=== PATIENT | male | born 1935 | race American Indian/Alaskan Native ===

== ENCOUNTER 2021-09-22 09:50 | Observation (INO) ==
--- NOTE | 2021-08-29 10:52 | PAT Medication Instructions ---
Medication Instructions Date of Service August 29, 2021 Home Medications Medication Instructions Recorded oxybutynin chloride 5 mg tablet 5 mg PO BID 30 Days #60 tab 08/30/20 atenolol 50 mg tablet 50 mg PO QAM glucosamine-chondroitin 250 mg-200 mg tablet (Osteo Bi-Flex) 2 tab PO DAILY multivitamin 1 tab PO DAILY spironolactone 25 mg tablet 25 mg PO QAM vit C-vit [id number] ox-lutein 226 mg-200 unit-5 mg-0.8 mg capsule 2 cap PO DAILY oxybutynin chloride 5 mg tablet 5 mg PO BID aflibercept 2 mg/0.05 mL intravitreal syringe (Eylea) 2 mg INTRAVITREAL UD PRN alfuzosin 10 mg tablet,extended release 24 hr 10 mg PO QDD pravastatin 40 mg tablet 40 mg PO QPM ASK your prescriber and surgeon aflibercept 2 mg/0.05 mL intravitreal syringe (Eylea) 2 mg INTRAVITREAL UD PRN STOP taking 2 weeks before surgery (or as soon as possible if surgery is within 2 weeks) glucosamine-chondroitin 250 mg-200 mg tablet (Osteo Bi-Flex) 2 tab PO DAILY vit C-vit [id number] ox-lutein 226 mg-200 unit-5 mg-0.8 mg capsule 2 cap PO DAILY DO NOT take the morning of surgery multivitamin 1 tab PO DAILY spironolactone 25 mg tablet 25 mg PO QAM oxybutynin chloride 5 mg tablet 5 mg PO BID Take morning of surgery With a small sip of water, OTHERWISE NOTHING TO EAT OR DRINK AFTER MIDNIGHT: atenolol 50 mg tablet 50 mg PO QAM Take evening before surgery oxybutynin chloride 5 mg tablet 5 mg PO BID alfuzosin 10 mg tablet,extended release 24 hr 10 mg PO QDD pravastatin 40 mg tablet 40 mg PO QPM Other Notes If you have any questions please call us at [phone] or [phone] or [phone] or [phone]
--- NOTE | 2021-09-03 13:45 | Anesthesiology Consultation ---
Date of Service September 03, 2021 Assessment & Plan (1) Encounter for pre-operative examination: - PCP office visit 08/05/21 [facility]: "...previously referred to Hematology for thrombocytopenia. Reviewed recent notes from Dr Madden. His last few platelet levels including [facility] were normal...Stable from Hematology point for future joint replacement surgery...Explained to patient I would consider him medically optimized for planned right total hip arthroplasty at this time. Any chronic conditions are stable. No acute cardiac findings on exam. Acceptable surgical candidate per age. Would be low overall risk for perioperative complications..." - hematology/oncology office visit 06/24/21 [facility]: "...stable without any new symptoms...doing well...increasing pain specially in the left knee and right hip and may need knee replacement surgery...waiting to schedule the right hip replacement surgery as this is causing more problems than the knee. There is no history of bleeding or change in any of the medication. Overall clinically he is stable. Platelet counts were normal. Discussed with the patient and detail about the diagnosis and reviewed all the available blood test result with them. For now will continue to monitor the patient clinically. Based on the recent blood test there is no contraindication to proceed with surgical procedure..." - COVID screening: Per assessment on 09/03/2021: Travel screen negative, no known COVID-19 positive contacts or current COVID-19 related symptoms in past 2 weeks. Patient vaccinated. Surgeon arranging preop COVID testing, scheduled 09/18/2021. Awaiting results. Chart Review Chart Review: Acceptable Risk for Surgery and Patient seen in Pre Admission Testing Teaching & Discussion Pre-Anesthesia Teaching/Discussion Notes: Instructed NPO after midnight before surgery, except medications with 15 cc of water. Medication instructions provided according to the PAT guidelines. History Surgery Operation Date: 09/22/21 12:30 Proposed Procedures p Right Anterior Total Hip Arthroplasty - Stanley Bright DO Height/Weight Height: 5 ft 10 in Weight: 84.7 kg Allergies Allergy/AdvReac Type Severity Reaction Status Date / Time No Known Allergies Allergy Verified 08/18/21 10:12 Medications Home Medications Medication Instructions Recorded Confirmed Last Taken atenolol 50 mg tablet 50 mg PO QAM 07/04/19 08/18/21 Unknown glucosamine-chondroitin 250 mg-200 2 tab PO DAILY 07/04/19 08/18/21 Unknown mg tablet (Osteo Bi-Flex) multivitamin 1 tab PO DAILY 07/04/19 08/18/21 Unknown spironolactone 25 mg tablet 25 mg PO QAM 07/04/19 08/18/21 Unknown vit C-vit F-[id number]-[id number] ox-lutein 2 cap PO DAILY 07/04/19 08/18/21 Unknown 226 mg-200 unit-5 mg-0.8 mg capsule oxybutynin chloride 5 mg tablet 5 mg PO BID 30 Days #60 tab 08/30/20 08/18/21 Unknown aflibercept 2 mg/0.05 mL 2 mg INTRAVITREAL UD PRN 08/18/21 08/18/21 Unknown intravitreal syringe (Eylea) alfuzosin 10 mg tablet,extended 10 mg PO QDD 08/18/21 08/18/21 Unknown release 24 hr pravastatin 40 mg tablet 40 mg PO QPM 08/18/21 08/18/21 Unknown Past Medical History Medical History (Updated 09/03/21 @ 15:34 by Nguyen Blair PA-C) Benign prostatic hyperplasia with urinary obstruction History of DVT (deep vein thrombosis) 10 years ago (post-op knee surgery)- previous on blood thinner (since discontinued) 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 Follows with [facility] heme/onc: per recent note 06/24/21 "platelet counts are normal" Patient denies h/o stroke, seizures, heart attack, heart failure or blood transfusions. Exercise / Class Metabolic Activity III < 4 Walking/Shop/Light housework (ambulates with rolling walker, denies CP or SOB) Past Family History Family History Mother Family history of diabetes mellitus Past Surgical History Surgical History History of colonoscopy History of left cataract surgery History of right cataract surgery History of right knee surgery 10 years ago (Dr. Temple) History of tonsillectomy Past Anesthesia History No Hx of Anesthesia Complications and No Family Hx of Anesthesia Complications History of PONV No Hx of PONV and No Hx of Motion Sickness Social History Smoking Status: Never smoker Do You Dip or Chew Tobacco: No Hx Alcohol Use: Yes Alcohol type: beer alcohol intake frequency: other Alcohol Intake Frequency Comment: IN THE SUMMER AFTER CUT GRASS WILL HAVE A BEER substance use type: does not use Review of Systems Occasional snoring supine per , denies witnessed apneas or sleep studies. Patient denies chest pain, shortness of breath, dyspnea on exertion, reflux, fever, chills, cough, wheezing, or palpitations. Physical Exam Vital Signs Vitals BP 130/65 P 60 TEMP 98.5 SP02 97% on RA RESP 17 Physical Full cervical extension range of motion without pain TMD 3.5 finger breaths Mallampati Score 3 Dentition: intact, several missing teeth, denies chipped or loose teeth, caps/crowns, implants or bridges Lungs: normal respiratory effort. Clear throughout to auscultation, no adventitious breath sounds Cardiac: regular rate and rhythm, no murmurs noted Carotid arteries: negative bruit bilat Lab Results Anesthesia Preop Results Results Anesthesia Widget: WBC 4.91 K/uL (4.8-10.8) 09/03/21 Hgb 14.0 g/dL (14.0-18.0) 09/03/21 Hct 42.2 % (42-52) 09/03/21 Plt 133 K/uL (130-400) 09/03/21 Na 140 mmol/L (136-145) 09/03/21 K 4.7 mmol/L (3.5-5.1) 09/03/21 Cl 103 mmol/L (98-107) 09/03/21 CO2 32 mmol/L (21-32) 09/03/21 BUN 22 mg/dl (6-23) 09/03/21 Creat 1.03 mg/dl (0.6-1.4) 09/03/21 Glucose Level 140 mg/dl (70-99(Fasting)) H 09/03/21 PT 10.8 Seconds (9.0-12.0) 09/03/21 PTT 26.9 Seconds (21.0-31.0) 09/03/21 INR 1.0 (0.9-1.1) 09/03/21 Blood Type O Positive 09/03/21 Antibody Screen NEGATIVE 09/03/21 Testing Electrocardiogram Date: 09/03/21 Sinus rhythm with marked sinus arrhythmia, rate [address] abnormality Chest X-Ray Date: 09/03/21 The heart is mildly enlarged noting atherosclerotic calcification of the thoracic aorta. The pulmonary vasculature is noncongested. The lungs and pleural spaces are clear. There is no pneumothorax. The skeletal structures are osteopenic. The bony thorax appears intact. Degenerative change is noted throughout the thoracic spine.
[~2021-09-22 09:50] MED LIST: ACETAMINOPHEN 500 MG TAB PO SCH; BUPIVACAINE 0.5 % 5 MG/1 ML PF 10ML VIAL ONE; FAMOTIDINE 20 MG TAB PO SCH; GABAPENTIN 300 MG CAP PO SCH; Ketorolac (*for OR use only*) 30 MG, dexAMETHasone 4 MG, KETAMINE HCL (**OR use only) 1... INFIL SCH; LR 15ML/HR IV SCH; LR 60ML/HR IV SCH; TRANEXAMIC ACID 1,000 MG **IV Intra-op IV SCH; TRANEXAMIC ACID 1,000 MG **IV Pre-op IV SCH; ceFAZolin 2000MG 2,000 MG/15 ML SYR IV SCH; dexAMETHasone 4 MG TAB PO SCH
--- NOTE | 2021-09-22 10:16 | History & Physical Bridge Note ---
Date of Service September 22, 2021 History & Physical Bridge Note I have examined the patient, reviewed the History & Physical and in the interval since the performance of the History & Physical I have noted the following changes of clinical significance: no changes noted
[2021-09-22] MEDS: LR 500ML BOLUS IV SCH ×2 (10:44→13:30)
[2021-09-22] MEDS ORDERED: ONDANSETRON INJ 2 MG/ML 2 ML VIAL IV PRN ×2 (11:06→16:35)
[2021-09-22] MEDS ORDERED: ePHEDrine sulfate 50 MG/ML AMP IV PRN (11:06)
[2021-09-22] MEDS ORDERED: ATROPINE SULFATE 0.1 MG/ML 10ML SYR IV PRN (11:06)
[2021-09-22] MEDS ORDERED: fentaNYL citrate 100 MCG/2 ML VIAL IV PRN (11:06)
[2021-09-22] MEDS ORDERED: MIDAZOLAM HCL 1 MG/ML 2ML VIAL ONE (11:27)
[2021-09-22] MEDS ORDERED: PROPOFOL IV EMULSION 10 MG/ML 20 ML VIAL IV ONE (11:27)
[2021-09-22] MEDS ORDERED: LIDOCAINE 2% 2 ML VIAL/AMP(20MG/ML) INFIL ONE (11:27)
[2021-09-22] MEDS ORDERED: fentaNYL citrate 100 MCG/2 ML VIAL ONE ×3 (11:27→14:35)
[2021-09-22] MEDS ORDERED: ORTHO JOINT ANESTHETIC ONE (12:53)
[2021-09-22] MEDS ORDERED: ONDANSETRON INJ 2 MG/ML 2 ML VIAL ONE (13:35)
[2021-09-22] MEDS ORDERED: ePHEDrine sulfate 50 MG/ML AMP ONE (13:53)
--- NOTE | 2021-09-22 14:35 | Operative Report ---
PG Post Operative Report Pre & Post Diagnosis Operation Date: 09/22/21 12:40 Pre-Op Diagnosis: Degenerative Joint Disease of Right Hip Post-Op Diagnosis: Degenerative Joint Disease of Right Hip I identified the patient and participated in the time-out.: Yes Procedure Operation Date: 09/22/21 12:40 Actual Procedures p Right Anterior Total Hip Arthroplasty(Right) - Stanley Bright DO Surgeon Stanley Bright DO Can Feeder Stanley Addison PAC Estimated Blood Loss 250 Findings Consistent with Post-Op Diagnosis Specimens Right femoral head Complications none Disposition Disposition: Recovery Room Indications Jaylon is a pleasant 85-year-old male who is been dealing with chronic increasing right hip and groin pain. X-rays and clinical examination were diagnostic for advanced osteoarthritis of the right hip. After failing conservative treatment, he elected proceed with a right anterior total hip arthroplasty. Description of Procedure Implants used I used a ZimmerBiomet total hip arthroplasty system with a size 4 standard offset Avenir Complete stem, a 56mm G7 cup with a 25mm screw, an E1 polyethylene liner, a 40mm ceramic head with a 0 neck. Jaylon arrived at the hospital for the above procedure. He was seen in the preoperative holding area and the operative extremity was identified and signed. He was given a preoperative antibiotic, and TXA. He was then taken back to the operating room and laid on the table in the supine position. He was given general anesthesia. The operative leg was secured to a Puristst leg positioner. The hip was then prepped and draped in sterile fashion. A timeout was done and the patient and the operative extremity was properly identified. An anterior approach was used. Dissection was taken down through the fascia and the tensor muscle belly was retracted laterally and the rectus was retracted medially. The circumflex vessels were identified and ligated. The capsule was then incised and tagged for later repair. The femoral neck was then cut and the femoral head was removed. The acetabulum was exposed. Time was spent doing a complete circumferential labral release. Sequential reaming of the acetabulum up to a size 55 reamer was done. Final reamings were done under fluoroscopy to ensure appropriate version. A Biomet 56mm G7 cup was then impacted into place. A single 25 mm screw was placed. The E1 polyethylene liner was then snapped into place. Surrounding soft tissues were then injected with 100 cc of an orthopedic pain control cocktail. The proximal femur was then exposed. Sequential broaching up to a size 4 broach was done. Off that broach a size 40 head with a 0 neck was trialed. The hip was reduced and fluoroscopic images showed anatomic alignment of the implants in acceptable length. The broach was removed. The final size 4 standard offset Avenir Complete stem was then impacted into place. A ceramic 40mm head with a 0 neck was then impacted onto the stem and the hip was reduced. Final fluoroscopic images showed anatomic alignment of the hip. The capsule was then closed with #1 Vicryl suture. A dilute betadyne lavage was then done for 3 minutes. The joint was then irrigated with normal saline solution. The fascia was closed with #1 PDS suture. Skin was closed with 2-0 Vicryl, mele, and a Silverlon dressing. He was then transferred to a hospital bed and taken to the post anesthesia care unit in stable condition. He tolerated the procedure well. Stanley Addison PA-C, was present for the entire procedure. He was critical for patient positioning, prepping, draping, retraction exposure, wound closure and application of sterile dressing. I attest to the content of the Intraoperative Record and any orders documented therein. Any exceptions are noted below.
--- NOTE | 2021-09-22 14:45 | Fluoroscopy Report ---
INTRAOPERATIVE RADIOGRAPHS CLINICAL HISTORY: Right hip arthroplasty. Fluoroscopy time: 21 seconds. FINDINGS: 2 spot fluoroscopic views of the right hip are presented. The initial image shows surgical absence of the right femoral head with an acetabular cup in place. The second image shows a bipolar r ight hip arthroplasty in near anatomic alignment. No evidence of acute fracture is identified on thes e fluoroscopic views. IMPRESSION: Intraoperative images from a right hip arthroplasty procedure as above. Electronically signed by: Richie Callejas M.D. 09/22/2021 2:44 PM
--- NOTE | 2021-09-22 15:27 | XRay Report ---
XR hip 1V RT w pelvis HISTORY: 85 years-old Male IN PACU - A/P PELVIS and LATERAL HIP right hip total joint arthroplasty COMPARISON: Fluoroscopic images of the right hip 09/22/2021 TECHNIQUE: 2 views of the right hip FINDINGS: There is at least moderate left hip osteoarthritis. Right hip total joint arthroplasty demonstrates s atisfactory alignment. There is no acute fracture or unexpected opaque foreign body. Lateral skin sta ples are noted along with expected postoperative soft tissue swelling with deep tissue air. IMPRESSION: Right hip total joint arthroplasty with expected postoperative changes. ACT 112: Negative or not required by law. The above report was generated using voice recognition software. It may contain grammatical, syntax o r spelling errors. Electronically signed by: Nikolai Barrientos M.D. 09/22/2021 3:24 PM
--- NOTE | 2021-09-22 15:46 | Anesthesiology Progress Note ---
Date of Service September 22, 2021 Anesthesia Post Procedure Vital Signs Vital Signs: Temp Pulse Pulse Resp BP BP Pulse Ox 09/22/21 15:35 66 15 142/59 H 98 09/22/21 15:25 65 19 155/87 H 97 09/22/21 15:15 77 12 139/90 99 09/22/21 15:05 67 20 158/74 H 99 09/22/21 14:59 37.0 C 75 14 160/77 H 94 09/22/21 10:21 37.3 C 54 L 20 157/69 H 97 Transfer of Care Handoff Completed per policy Notes Mental Status: alert / awake / arousable Patient Amnestic to Procedure: Yes Nausea / Vomiting: adequately controlled Pain: adequately controlled Airway Patency, RR, SpO2: stable & adequate BP & HR: stable & adequate Hydration State: stable & adequate Anesthetic Complications: no major complications apparent and Pt Satisfied with anesthetic care
[2021-09-22] MEDS ORDERED: METOCLOPRAMIDE HCL INJ 5 MG/ML 2 ML VIAL IV PRN (16:35)
[2021-09-22] MEDS ORDERED: HYDROmorphone INJ 0.5 MG/0.5 ML SYR IV PRN (16:35)
[2021-09-22] MEDS ORDERED: bisacodyL 10 MG SUPP PR PRN (16:35)
[2021-09-22] MEDS ORDERED: ALFUZOSIN HCL 10 MG TAB PO SCH (16:35)
[2021-09-22] MEDS ORDERED: oxyCODONE HCL IR 5 MG TAB (IMMEDIATE RELEASE) PO PRN (16:35)
[2021-09-22] MEDS ORDERED: MAGNESIUM HYDROXIDE SUSP 30 ML UDC PO PRN (16:35)
[2021-09-22] MEDS ORDERED: NALOXONE HCL 0.4 MG/1 ML VIAL/CARP IV PRN (16:35)
[2021-09-22] MEDS: SODIUM CHLORIDE 0.9% 1000ML 1,000 ML IV SCH (18:05)
[2021-09-22] MEDS: KETOROLAC TROMETHAMINE 15 MG/ML VIAL IV SCH ×2 (18:11→21:00)
[2021-09-22] MEDS ORDERED: ASPIRIN 81 MG ECTAB PO SCH (21:00)
[2021-09-22] MEDS ORDERED: SENNA 8.6 MG TAB PO SCH (21:00)
[2021-09-22] MEDS ORDERED: PRAVASTATIN SOD 40 MG TAB PO SCH (21:00)
[2021-09-22] MEDS: ceFAZolin 2000MG 2,000 MG/15 ML SYR IV SCH (21:00)
[2021-09-22] MEDS: OXYBUTYNIN CHLORIDE 5 MG TAB PO SCH (21:01)
[2021-09-22] MEDS: DOCUSATE SODIUM 100 MG CAP PO SCH (21:01)
[2021-09-22] MEDS: ACETAMINOPHEN 500 MG TAB PO SCH (21:02)
[2021-09-23] MEDS: SODIUM CHLORIDE 0.9% 1000ML 1,000 ML IV SCH (04:35)
[2021-09-23] MEDS: ceFAZolin 2000MG 2,000 MG/15 ML SYR IV SCH (05:40)
[2021-09-23] MEDS: KETOROLAC TROMETHAMINE 15 MG/ML VIAL IV SCH ×2 (05:40→08:32)
[2021-09-23] MEDS: ACETAMINOPHEN 500 MG TAB PO SCH (05:40)
--- NOTE | 2021-09-23 07:03 | Orthopedic Progress Note ---
Date of Service September 23, 2021 Assessment & Plan (1) Status post right hip replacement: Overall is doing very well. He is not having much pain in the right hip. He is on Xarelto for DVT prophylaxis. He will be seen by physical therapy today for ambulation and range of motion exercises. He can be discharged home later today. He will follow-up with orthopedics in 2 weeks. Oliver Torres was seen and examined at bedside this morning. Overall is doing very well. He is not having much pain in the right hip. He was able to get some sleep last night. Has been walking around his room. He has no complaints. Review of Systems All systems reviewed & are unremarkable except as noted in HPI & below. Physical Exam On physical examination of the right hip, the dressing is clean and dry. His leg is out in full extension. He has active dorsiflexion and plantarflexion of his right ankle.. Results & Data Results & Data Laboratory Results . Diagnostic Findings Postoperative x-rays of the right hip show the prosthesis to be in anatomic alignment without any evidence of fracture, desiccation, or loosening. PG Care Time/CCT Total # of Minutes Spent Total Time Spent with Patient: Total time spent is greater than 50% in coordination of care (as documented) at patient's floor/unit and/or counseling patient: Coding Level of Care Code 82396 Post Operative Follow-Up Diagnoses Status post right hip replacement Z96.641
--- NOTE | 2021-09-23 07:04 | Discharge Summary ---
Date of Service September 23, 2021 Principal Diagnosis Same as "Discharge Diagnosis" noted below under Discharge Instructions. Discharge Exam On physical examination of the right hip, the dressing is clean and dry. His leg is out in full extension. He has active dorsiflexion and plantarflexion of his right ankle.. Discharge Data Procedures Performed Operation Date: 09/22/21 12:40 Actual Procedures p Right Anterior Total Hip Arthroplasty(Right) - Stanley Bright DO Ordered Studies 09/22/21 12:40 FL hip RT 1V Routine Hospital Course (1) Status post right hip replacement: On September 22, [address] [facility] and underwent a right hip replacement without complication. He had a general anesthetic. Postoperatively he was started on Xarelto for DVT prophylaxis and transferred to the general orthopedic floors. His hospital course was uneventful. On postop day #1, his vital signs were stable and his pain was well controlled. He was able to participate well with physical therapy doing ambulation and range of motion exercises. He was then discharged home. He will follow-up with orthopedics in 2 weeks. PG Care Time/CCT Total # of Minutes Spent Total Time Spent with Patient: Total time spent is greater than 50% in coordination of care (as documented) at patient's floor/unit and/or counseling patient: Discharge Plan Discharge Items Patient Disposition: Home - Home Health Services Reason For Visit: DJD Right Hip Discharge Diagnosis: Right hip replacement Activity: Per Instructions section Non-emergency contact: Surgeon Call non-emergency contact if: your wound has increased redness and your wound has increased drainage Follow-up/Referrals: Karlo Dimas MD [Primary Care Provider] - Diet: Regular Addtl Attending Provider Instructions: Activity and Therapy Recommendations: * If you are using [facility] then therapy will be provided at your home until they feel you have accomplished all of your goals. * If you are using [facility] then Physical Therapy will be provided until they feel you are ready to start Outpatient Physical Therapy. * If you are not using home therapy then Outpatient Physical Therapy should start about 3-5 days from your day of surgery. Therapy will last about 6-10 weeks * You were shown a series of exercises in the hospital. Do these exercises three times each day including the exercises you were shown in physical therapy. * Get up and walk several times each day.~ For the first four weeks, try not to stand or walk for more than one hour at a time. If you do stand or walk for more than one hour, you will not hurt anything, but your leg will likely swell.~~ * As you feel comfortable, you may change from the walker or crutches to a cane and~then to independent walking. Medications: * Narcotic You will likely be sent home from the hospital with a prescription for the narcotic pain medication that worked best throughout your stay. * Aspirin Most patients will be required to take Aspirin 81mg twice a day for 6 weeks after surgery. This is obtained [id number] and a prescription is not necessary. * Other medications may be prescribed for specific circumstances. If you have any questions, please call the office at . * Resume previous home medications unless otherwise instructed TEDs/Elastic Stockings: The white elastic stockings help limit swelling and prevent blood clots from forming in your legs. The more you wear them, the more they work. Wear them for six weeks. Dressing Care: Leave the Silverlon dressing in place for 7 days. After 7 days you may remove the dressing. If the incision is not draining then you may leave the mele open to air. If there is a little bit of drainage or if the mele are getting stuck on your clothing then cover the incision with a dry dressing. The mele will be removed at your 2 week follow-up appointment. Showering: You may shower with the Silverlon dressing in place. Do not let the shower spray hit the dressing directly. Pat the Silverlon dressing dry. If the dressing becomes wet underneath, then simply remove the dressing. Keep the incision dry until you are 7 days out from the day of surgery. After 7 days you may remove the Silverlon dressing and shower with the mele exposed. Let soapy water run over the mele and pat them dry. Do not scrub or soak the incision. Things To Watch For: * Drainage from the incision site that occurs more than one week after your surgery. * Increased redness at the incision site. * Fever above 102 degrees Fahrenheit. * Unusual chest pain or shortness of breath. * Call [facility] at with any of the above problems Follow-Up Visit: Follow-up with Dr. Bright's PA (Stanley Addison) 2-3 weeks after your day of surgery. He will remove your mele and answer any questions. If you have any additional questions or concerns, Dr Bright is usually in the office at the same time and will be available An appointment was probably scheduled when you signed-up for surgery in the office. If you have any questions call Office Instructions: More detailed instructions as well as Frequently Asked Questions were provided in a folder by our office when you signed-up for surgery. Please review these instructions when you get home. If you have any further questions or concerns, please feel free to call the office at [phone] Pending Studies at Discharge: No Stand-Alone Forms: [facility] Medications and DC Order Prescriptions: New oxycodone-acetaminophen 5-325 mg tablet 1 tab PO Q6H PRN (Reason: pain) Qty: 30 RF: 0 Xarelto 10 mg tablet 10 mg PO DAILY 30 Days Qty: 30 RF: 0 Continued oxybutynin chloride 5 mg tablet 5 mg PO BID 30 Days Qty: 60 RF: 2 PreserVision Lutein 226 mg-200 unit -5 mg-0.8 mg capsule 2 cap PO DAILY RF: 0 atenolol 50 mg tablet 50 mg PO QAM RF: 0 spironolactone 25 mg tablet 25 mg PO QAM RF: 0 glucosamine-chondroitin [Osteo Bi-Flex] 250-200 mg tablet 2 tab PO DAILY RF: 0 multivitamin Tablet 1 tab PO DAILY RF: 0 pravastatin 40 mg Tablet 40 mg PO QPM RF: 0 alfuzosin 10 mg tablet extended release 24 hr 10 mg PO QDD RF: 0 Eylea 2 mg/0.05 mL Syringe 2 mg INTRAVITREAL UD PRN (Reason: MACULAR DEGENERATION) RF: 0 Discharge Orders: Discharge Order (Routine); Ordered 09/23/21 Ordered By: Stanley Bright Admission Data Admit Date/Time: 09/22/21 14:57 Attending Provider: Stanley Bright Admit Provider: Stanley Bright Primary Care Provider: Karlo Dimas
[2021-09-23] MEDS: DOCUSATE SODIUM 100 MG CAP PO SCH (07:32)
[2021-09-23] MEDS: OXYBUTYNIN CHLORIDE 5 MG TAB PO SCH (07:33)
[2021-09-23] MEDS ORDERED: dexAMETHasone 4 MG TAB PO SCH (08:00)
[2021-09-23] MEDS ORDERED: SPIRONOLACTONE 25 MG TAB PO SCH (09:00)
[2021-09-23] MEDS ORDERED: RIVAROXABAN 10 MG TABLET PO SCH (09:00)
[2021-09-23] MEDS ORDERED: ATENOLOL 50 MG TABLET PO SCH (09:00)
[2021-09-23] MEDS ORDERED: MULTIVITAMIN TAB PO SCH (09:00)
== END 2021-09-23 11:59 | disposition home health service (06) ==
LOC: ASU 09:50 → 3E 09:50

== ENCOUNTER 2022-05-08 07:48 | Observation (INO) ==
--- NOTE | 2022-03-31 15:59 | PAT Medication Instructions ---
Medication Instructions Date of Service March 31, 2022 Home Medications Medication Instructions Recorded amoxicillin 500 mg tablet 2,000 mg PO ONCE PRN prophylaxis 03/02/22 #4 tabs atenolol 50 mg tablet 50 mg PO QAM glucosamine-chondroitin 250 mg-200 mg tablet (Osteo Bi-Flex) 2 tab PO QPM multivitamin 1 tab PO QAM spironolactone 25 mg tablet 25 mg PO QAM vit C 226 mg-vit E 90 mg-copper 0.8 mg-zinc oxide-lutein 5 mg capsule 1 cap PO BID aflibercept 2 mg/0.05 mL intravitreal syringe (Eylea) 2 mg intravitreal UD PRN MACULAR DEGENERATION pravastatin 40 mg tablet 40 mg PO QPM amoxicillin 500 mg tablet 2,000 mg PO ONCE PRN alfuzosin 10 mg tablet,extended release 24 hr 10 mg PO QPM dutasteride 0.5 mg capsule (Avodart) 0.5 mg PO QPM Continue as directed amoxicillin 500 mg tablet 2,000 mg PO ONCE PRN(if needed) ASK your prescriber and surgeon aflibercept 2 mg/0.05 mL intravitreal syringe (Eylea) 2 mg intravitreal UD PRN MACULAR DEGENERATION STOP taking 2 weeks before surgery glucosamine-chondroitin 250 mg-200 mg tablet (Osteo Bi-Flex) 2 tab PO QPM vit C 226 mg-vit E 90 mg-copper 0.8 mg-zinc oxide-lutein 5 mg capsule 1 cap PO BID DO NOT take the morning of surgery multivitamin 1 tab PO QAM spironolactone 25 mg tablet 25 mg PO QAM Take morning of surgery With a small sip of water, OTHERWISE NOTHING TO EAT OR DRINK AFTER MIDNIGHT: atenolol 50 mg tablet 50 mg PO QAM Take evening before surgery pravastatin 40 mg tablet 40 mg PO QPM alfuzosin 10 mg tablet,extended release 24 hr 10 mg PO QPM dutasteride 0.5 mg capsule (Avodart) 0.5 mg PO QPM Other Notes If you have any questions please call us at [phone] or [phone] or [phone] or [phone]
--- NOTE | 2022-04-08 13:02 | Anesthesiology Consultation ---
Date of Service April 08, 2022 Assessment & Plan (1) Encounter for pre-operative examination: Plan - SAB attempted for R KASEY 09/22/21 LMA#5. "Failed spinal-general with LMA done." Outpatient joint assessment: Patient is currently scheduled for inpatient pathway. If re-evaluated pending system levels during current pandemic/surgeon requests outpatient pathway, patient is not acceptable candidate for outpatient joint program from anesthesia standpoint. Chart Review Chart Review: Acceptable Risk for Surgery and Patient seen in Pre Admission Testing Teaching & Discussion Pre-Anesthesia Teaching/Discussion Notes: Instructed NPO after midnight before surgery, except medications with 15 cc of water. Medication instructions provided according to the PAT guidelines. History Surgery Operation Date: 05/08/22 10:30 Proposed Procedures p Left Total Knee Arthroplasty - Stanley Bright DO Height/Weight Height: 5 ft 11 in Weight: 83.915 kg Allergies Allergy/AdvReac Type Severity Reaction Status Date / Time No Known Allergies Allergy Verified 03/31/22 15:02 Medications Home Medications Medication Instructions Recorded Confirmed Last Taken atenolol 50 mg tablet 50 mg PO QAM 07/04/19 03/31/22 09/22/21 08:00 glucosamine-chondroitin 250 mg-200 2 tab PO QPM 07/04/19 03/31/22 09/08/21 mg tablet (Osteo Bi-Flex) multivitamin 1 tab PO QAM 07/04/19 03/31/22 09/08/21 spironolactone 25 mg tablet 25 mg PO QAM 07/04/19 03/31/22 09/21/21 07:00 vit C 226 mg-vit E 90 mg-copper 1 cap PO BID 07/04/19 03/31/22 09/08/21 0.8 mg-zinc oxide-lutein 5 mg capsule aflibercept 2 mg/0.05 mL 2 mg intravitreal UD PRN MACULAR 08/18/21 03/31/22 07/15/21 intravitreal syringe (Eylea) DEGENERATION pravastatin 40 mg tablet 40 mg PO QPM 08/18/21 03/31/22 09/21/21 22:00 amoxicillin 500 mg tablet 2,000 mg PO ONCE PRN prophylaxis 03/02/22 03/31/22 U nknown #4 tabs alfuzosin 10 mg tablet,extended 10 mg PO QPM 03/31/22 03/31/22 Unknown release 24 hr dutasteride 0.5 mg capsule 0.5 mg PO QPM 03/31/22 03/31/22 Unknown (Avodart) Past Medical History Medical History (Updated 04/08/22 @ 13:05 by Nguyen Blair PA-C) Benign prostatic hyperplasia with urinary obstruction History of DVT (deep vein thrombosis) 10 years ago (post-op knee surgery)- previous on blood thinner (since discontinued) HTN (hypertension) controlled, stable per pt Hypercholesteremia Macular degeneration WET Overactive bladder Prediabetes A1c 6.0% 02/05/22 Thrombocytopenia 02/2021. Follows with [facility] heme/onc, stable per 12/2021 note Urinary retention Patient denies h/o stroke, seizures, heart attack, heart failure, or blood transfusions. 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 Temple) History of tonsillectomy Status post right hip replacement (~09/2021) 09/22/21 LMA#5. "Failed spinal-general with LMA done." Past Anesthesia History No Family Hx of Anesthesia Complications and Other (R KASEY 09/22/21 LMA#5. "Failed spinal-general with LMA done.") History of PONV No Hx of PONV and No Hx of Motion Sickness Social History Smoking Status: Never smoker Do You Dip or Chew Tobacco: No Hx Alcohol Use: Yes ("in the summer after cutting grass will have a beer") Alcohol type: beer alcohol intake frequency: holidays/special occasions only Hx Substance Use: No substance use type: does not use Review of Systems Patient denies chest pain, shortness of breath, dyspnea on exertion, snoring, witnessed apneas, reflux, fever, chills, cough, wheezing, or palpitations. Physical Exam Vital Signs Vitals BP 146/70 P 63 TEMP 98.4 SP02 98% on RA RESP 18 Physical Full cervical extension range of motion without pain TMD 3.5 finger breadths Mallampati Score 3 Dentition: several missing teeth; denies chipped or loose teeth, caps/crowns, implants or bridges Lungs: normal respiratory effort. Clear throughout to auscultation, no adventitious breath sounds Cardiac: regular rate and rhythm, no murmurs noted Carotid arteries: negative bruit bilat Lab Results Anesthesia Preop Results Results Anesthesia Widget: WBC 4.03 K/ul (4.8-10.8) L 04/08/22 Hgb 13.8 g/dl (14.0-18.0) L 04/08/22 Hct 41.8 % (40.1-51.0) 04/08/22 Plt 113 K/uL (130-400) L 04/08/22 Na 143 mmol/L (136-145) 04/08/22 K 4.6 mmol/L (3.5-5.1) 04/08/22 Cl 106 mmol/L (98-107) 04/08/22 CO2 33 mmol/L (21-32) H 04/08/22 BUN 22 mg/dl (6-23) 04/08/22 Creat 1.07 mg/dl (0.6-1.4) 04/08/22 Glucose Level 127 mg/dl (70-99(Fasting)) H 04/08/22 PT 10.8 Seconds (9.0-12.0) 04/08/22 PTT 26.7 Seconds (21.0-31.0) 04/08/22 INR 1.0 (0.9-1.1) 04/08/22 Blood Type O Positive 04/08/22 Antibody Screen NEGATIVE 04/08/22 Testing Electrocardiogram Date: 09/03/21 Sinus rhythm with marked sinus arrhythmia, rate [address] abnormality Chest X-Ray Date: 09/03/21 The heart is mildly enlarged noting atherosclerotic calcification of the thoracic aorta. The pulmonary vasculature is noncongested. The lungs and pleural spaces are clear. There is no pneumothorax. The skeletal structures are osteopenic. The bony thorax appears intact. Degenerative change is noted throughout the thoracic spine. COVID-19 Risk Screen Screening Information COVID-19 Screen Date: 04/08/22 Exposure 21 Days Family/Household +COVID Last 21 Days: No Exposure 10 Days Any COVID Exposure Last 10 Days: No Symptoms Last 10 Days Experienced COVID Sx Last 10 Days: No + COVID 0-90 Days COVID + in Last 0-90 Days: No
--- NOTE | 2022-05-07 06:57 | History & Physical Report ---
Date of Service May 07, 2022 Assessment & Plan (1) Primary osteoarthritis of left knee: We will proceed with a left total knee arthroplasty. Postoperatively he will be started on Eliquis for DVT prophylaxis and kept overnight in the hospital for postoperative medical management. He plans to have the hospital set up home health before discharge. History of Present Illness Chief Complaint: Osteoarthritis of the left knee. Primary Care Provider: Karlo Dimas MD Jaylon is a pleasant 86-year-old male who I recently did a right hip replacement on. He has done very well with that. Unfortunately, he is dealing with debilitating left knee pain. It hurts him all the time. Hehas already tried years of injections in his knee. It is affecting his daily activities. 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 He does have a history of a patella tendon repair by Dr. Temple in 2010. He did have a DVT after that repair. After failing conservative treatment of his left knee, he has elected proceed with a left total knee arthroplasty. Allergies Allergy/AdvReac Type Severity Reaction Status Date / Time No Known Allergies Allergy Verified 03/31/22 15:02 Home Medications Medication Instructions Recorded Confirmed Type atenolol 50 mg tablet 50 mg PO QAM 07/04/19 03/31/22 History glucosamine-chondroitin 250 mg-200 2 tab PO QPM 07/04/19 03/31/22 History mg tablet (Osteo Bi-Flex) multivitamin 1 tab PO QAM 07/04/19 03/31/22 History spironolactone 25 mg tablet 25 mg PO QAM 07/04/19 03/31/22 History vit C 226 mg-vit E 90 mg-copper 1 cap PO BID 07/04/19 03/31/22 History 0.8 mg-zinc oxide-lutein 5 mg capsule aflibercept 2 mg/0.05 mL 2 mg intravitreal UD PRN MACULAR 08/18/21 03/31/22 History intravitreal syringe (Eylea) DEGENERATION pravastatin 40 mg tablet 40 mg PO QPM 08/18/21 03/31/22 History amoxicillin 500 mg tablet 2,000 mg PO ONCE PRN prophylaxis 03/02/22 03/31/22 Rx #4 tabs alfuzosin 10 mg tablet,extended 10 mg PO QPM 03/31/22 03/31/22 History release 24 hr dutasteride 0.5 mg capsule 0.5 mg PO QPM 03/31/22 03/31/22 History (Avodart) Past Med/Surg History Medical History Benign prostatic hyperplasia with urinary obstruction History of DVT (deep vein thrombosis) 10 years ago (post-op knee surgery)- previous on blood thinner (since discontinued) HTN (hypertension) controlled, stable per pt Hypercholesteremia Macular degeneration WET Overactive bladder Prediabetes A1c 6.0% 02/05/22 Thrombocytopenia 02/2021. 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 Temple) History of tonsillectomy Status post right hip replacement (~09/2021) 09/22/21 LMA#5. "Failed spinal-general with LMA done." Family History Mother Family history of diabetes mellitus Other No family history of adverse response to anesthesia Social History Smoking Status: Never smoker Second Hand Exposure: No; Hx Alcohol Use: Yes ("in the summer after cutting grass will have a beer") Alcohol type: beer Hx Substance Use: No Preferred Language: Korean Communication Ability: Effective Tiler'S Assistant Required: No Beliefs That Will Affect Care: None marital status: Current Living Situation: Spouse Feels Safe at Home: Yes Assistive Devices: Glasses and Hearing Aid - Bilateral Review of Systems All systems reviewed & are unremarkable except as noted in HPI & below. Physical Exam On physical examination of the left knee, he does have a varus deformity. He has range of motion from 5 to 120 degrees. No instability. Pain of the distal medial femoral condyle and over the medial joint line.. Constitutional WD/WN, vitals as above Eyes PERRL, conjunctivae normal, anicteric sclerae ENMT external ear and nose normal, oropharynx normal Neck trachea midline, no thyromegaly Respiratory normal respiratory effort, lungs clear to auscultation Cardiovascular RRR, no murmur, no edema Gastrointestinal (Abdomen) normal bowel sounds, soft, nontender, no hepatosplenomegaly Skin no rashes, warm and dry Psychiatric A+Ox3, euthymic affect Results & Data Results & Data Laboratory Results . Diagnostic Findings X-rays of the left knee show advanced osteoarthritis with joint space narrowing, osteophyte formation, and [id number] articulation. PG Care Time/CCT Total # of Minutes Spent Total Time Spent with Patient: Total time spent is greater than 50% in coordination of care (as documented) at patient's floor/unit and/or counseling patient: Coding Level of Care Code None Diagnoses Primary osteoarthritis of left knee M17.12
[~2022-05-08 07:48] MED LIST changes: +BUPIVACAINE 0.25% 30 ML VIAL ONE; +DEXAMETHASONE SOD INJ 4 MG/ML VIAL ONE; +EPINEPHrine INJ 1 MG/ML AMP ONE; -Ketorolac (*for OR use only*) 30 MG, dexAMETHasone 4 MG, KETAMINE HCL (**OR use only) 1... INFIL SCH; -LR 15ML/HR IV SCH; +LR 500ML BOLUS, THEN 15ML/HR IV SCH; +ORTHO JOINT MIX INFIL SCH
[2022-05-08] MEDS ORDERED: PROPOFOL IV EMULSION 10 MG/ML 20 ML VIAL IV ONE ×2 (08:37→11:51)
[2022-05-08] MEDS ORDERED: MIDAZOLAM HCL 1 MG/ML 2ML VIAL ONE (08:37)
[2022-05-08] MEDS ORDERED: fentaNYL citrate 100 MCG/2 ML VIAL ONE (08:37)
[2022-05-08] MEDS ORDERED: LIDOCAINE 2% MPF LOCAL 5 ML VIAL INFIL ONE (08:37)
--- NOTE | 2022-05-08 09:17 | History & Physical Bridge Note ---
Date of Service May 08, 2022 History & Physical Bridge Note I have examined the patient, reviewed the History & Physical and in the interval since the performance of the History & Physical I have noted the following changes of clinical significance: no changes noted
[2022-05-08] MEDS ORDERED: ROPIVACAINE 0.5% 5 MG/ML 30 ML VIAL ONE (09:25)
[2022-05-08] MEDS ORDERED: ATROPINE SULFATE 0.1 MG/ML 10ML SYR IV PRN (09:33)
[2022-05-08] MEDS ORDERED: ONDANSETRON INJ 2 MG/ML 2 ML VIAL IV PRN ×2 (09:33→13:35)
[2022-05-08] MEDS ORDERED: fentaNYL citrate 100 MCG/2 ML VIAL IV PRN (09:33)
[2022-05-08] MEDS ORDERED: ePHEDrine sulfate 50 MG/ML AMP IV PRN (09:33)
--- NOTE | 2022-05-08 11:44 | Operative Report ---
PG Post Operative Report Pre & Post Diagnosis Operation Date: 05/08/22 10:25 Pre-Op Diagnosis: DJD Knee Left Post-Op Diagnosis: DJD Knee Left I identified the patient and participated in the time-out.: Yes Procedure Operation Date: 05/08/22 10:25 Actual Procedures p Left Total Knee Arthroplasty(Left) - Stanley Bright DO Surgeon Stanley Bright DO Loss Control Engineer Stanley Addison PA-C Estimated Blood Loss 20 Findings Consistent with Post-Op Diagnosis Specimens Left femoral and tibial bone Description of Procedure Implants used: I used a Noemy Persona total knee arthroplasty system with a size 9 PS femur, F tibia, 28 oval patella, and a size 10 CPS polyethylene bearing. All components were cemented in place with Biomet cement. Jaylno arrived [facility] for the above procedure. He was seen in the preoperative holding area and the operative extremity was identified and signed. He was given a preoperative antibiotic, TXA, a spinal anesthetic and an adductor nerve block. He was taken back to the operating room and laid on the table in supine position. He was given basic sedation. The operative knee was then prepped and draped in sterile fashion. A timeout was done, and the patient and the operative extremity was properly identified. A midline incision was made directly over the patella. Dissection was taken down to the extensor mechanism. A subvastus arthrotomy was used. The medial retinaculum was released and the fat pad was mostly excised. The knee was flexed and the ACL, PCL, and meniscus were removed. A drill was sent down the center of the femoral canal followed by an intramedullary leslie. Off that leslie a distal femoral cutting block was placed. 9 mm was resected off the distal femur at 5 of valgus. A posterior referencing AP sizing guide was then placed on the distal femur. The femur measured to be a size 9. 2 drill holes were placed in 3 of external rotation. A 4-in-1 cutting block was then impacted into place. Anterior, posterior, and chamfer cuts were then made. The proximal tibia was then exposed. An external tibial alignment guide was placed. A tibial cut guide was then anchored in place and the proximal tibia was then resected. The posterior aspect of the knee was then opened up and any additional meniscus fragments and osteophytes were removed. The tibia measured to be a size F. The tibial plate was then placed in the appropriate rotation and the tibia was drilled and punched. Trial components were then placed. I used a size 10 CPS polyethylene insert. The knee was brought through a full range of motion and felt to be stable. The peg holes for the femoral component were then drilled. The patella was then everted and 9 mm was resected off the posterior aspect of the patella. The patella measured to be a size 28 oval. 3 peg holes were then drilled. A trial patella was placed. The knee was once again brought through a full range of motion and felt to be stable. Trial components were then removed. The surrounding soft tissues were injected with 100 cc of an orthopedic pain control cocktail. All components were then cemented into place with Biomet cement. The final polyethylene insert was then snapped into place. Once cement was dry the tourniquet was deflated. Hemostasis was obtained. A dilute betadyne lavage was then done for 3 minutes. The joint was then irrigated with normal saline solution. The subvastus arthrotomy was then closed with #1 Vicryl suture. The skin was closed with 2-0 Vicryl, 3-0V lock suture, and mele. A soft compressive dressing was placed. He was then transferred to a hospital bed and taken to the postanesthesia care unit in stable condition. He tolerated the procedure well. Stanley Addison PA-C, was present for the entire procedure. He was critical for patient positioning, prepping, draping, retraction exposure, wound closure and application of sterile dressing. I attest to the content of the Intraoperative Record and any orders documented therein. Any exceptions are noted below.
--- NOTE | 2022-05-08 12:38 | Anesthesiology Progress Note ---
Date of Service May 08, 2022 Anesthesia Post Procedure Vital Signs Vital Signs: Temp Pulse Pulse Resp BP Pulse Ox O2 Del Method 05/08/22 12:20 54 L 21 109/55 L 99 Oxymask 05/08/22 12:30 51 L 17 103/50 L 96 Room Air 05/08/22 12:10 54 L 12 111/48 L 98 Oxymask 05/08/22 12:01 97.2 F L 52 L 19 99/43 L 98 Oxymask 05/08/22 08:27 98.4 F 54 L 18 154/65 H 97 Room Air O2 Flow Rate 05/08/22 12:20 5 05/08/22 12:30 05/08/22 12:10 5 05/08/22 12:01 5 05/08/22 08:27 Transfer of Care Handoff Completed per policy Notes Mental Status: alert / awake / arousable and participated in evaluation Patient Amnestic to Procedure: Yes Nausea / Vomiting: adequately controlled Pain: adequately controlled Airway Patency, RR, SpO2: stable & adequate BP & HR: stable & adequate Hydration State: stable & adequate Neuraxial Anesthesia: was administered and sensory block is resolving Anesthetic Complications: no major complications apparent and Pt Satisfied with anesthetic care
--- NOTE | 2022-05-08 13:05 | XRay Report ---
LEFT KNEE 2 VIEWS History: Left total knee arthroplasty. Degenerative arthritis. Postop. FINDINGS: The patient is status post a left total knee arthroplasty. The hardware is intact. No fract ure or dislocation. Skin mele are in place. IMPRESSION: Left total knee arthroplasty. No evidence for hardware complication. ACT 112: Negative or not required by law. Electronically signed by: Carlos Jones M.D. 05/08/2022 1:04 PM
[2022-05-08] MEDS ORDERED: NALOXONE HCL 0.4 MG/1 ML VIAL/CARP IV PRN (13:35)
[2022-05-08] MEDS ORDERED: HYDROmorphone INJ 0.5 MG/0.5 ML SYR IV PRN (13:35)
[2022-05-08] MEDS ORDERED: METOCLOPRAMIDE HCL INJ 5 MG/ML 2 ML VIAL IV PRN (13:35)
[2022-05-08] MEDS ORDERED: oxyCODONE HCL IR 5 MG TAB (IMMEDIATE RELEASE) PO PRN (13:35)
[2022-05-08] MEDS ORDERED: MAGNESIUM HYDROXIDE SUSP 30 ML UDC PO PRN (13:35)
[2022-05-08] MEDS ORDERED: bisacodyL 10 MG SUPP PR PRN (13:35)
[2022-05-08] MEDS: ACETAMINOPHEN 500 MG TAB PO SCH ×2 (14:58→20:59)
[2022-05-08] MEDS: ceFAZolin 2000MG 2,000 MG/15 ML SYR IV SCH (18:17)
[2022-05-08] MEDS: SODIUM CHLORIDE 0.9% 1000ML 1,000 ML IV SCH (18:19)
[2022-05-08] MEDS: DOCUSATE SODIUM 100 MG CAP PO SCH (20:56)
[2022-05-08] MEDS: APIXABAN 2.5 MG TAB PO SCH (20:56)
[2022-05-08] MEDS ORDERED: PRAVASTATIN SOD 40 MG TAB PO SCH (21:00)
[2022-05-08] MEDS ORDERED: SENNA 8.6 MG TAB PO SCH (21:00)
[2022-05-08] MEDS ORDERED: ALFUZOSIN HCL 10 MG TAB PO SCH (21:00)
[2022-05-09] MEDS: ceFAZolin 2000MG 2,000 MG/15 ML SYR IV SCH (01:59)
[2022-05-09] MEDS: SODIUM CHLORIDE 0.9% 1000ML 1,000 ML IV SCH (02:00)
[2022-05-09] MEDS: ACETAMINOPHEN 500 MG TAB PO SCH (05:53)
--- NOTE | 2022-05-09 07:53 | Orthopedic Progress Note ---
Date of Service May 09, 2022 Assessment & Plan (1) Status post left knee replacement: Overall he is doing very well. He is not having much pain in the left knee. He will be seen by physical therapy today for ambulation and range of motion exercises. He is on Eliquis for DVT prophylaxis. He can be discharged home later today. He will follow-up orthopedics in 2 weeks. Oliver Iyer was seen and examined at bedside this morning. Overall he is doing very well. Is not having much pain in the left knee. He has been up and ambulating to the bathroom. He has no complaints.. Review of Systems All systems reviewed & are unremarkable except as noted in HPI & below. Physical Exam On physical examination of the left knee, the dressing is clean and dry. He has active dorsiflexion plantarflexion of his left ankle.. Results & Data Results & Data Laboratory Results . Diagnostic Findings Postoperative x-rays of the left knee show the prosthesis to be in anatomic alignment without any evidence of fracture, desiccation, or loosening. PG Care Time/CCT Total # of Minutes Spent Total Time Spent with Patient: Total time spent is greater than 50% in coordination of care (as documented) at patient's floor/unit and/or counseling patient: Coding Level of Care Code 09192 Post Operative Follow-Up Diagnoses Status post left knee replacement Z96.652
--- NOTE | 2022-05-09 07:54 | Discharge Summary ---
Date of Service May 09, 2022 Admission HPI (Per Admitting) Jaylon is a pleasant 86-year-old male who I recently did a right hip replacement on. He has done very well with that. Unfortunately, he is dealing with debilitating left knee pain. It hurts him all the time. Hehas already tried years of injections in his knee. It is affecting his daily activities. 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 He does have a history of a patella tendon repair by Dr. Temple in 2010. He did have a DVT after that repair. After failing conservative treatment of his left knee, he has elected proceed with a left total knee arthroplasty. Admission Exam (Per Admitting) On physical examination of the left knee, he does have a varus deformity. He has range of motion from 5 to 120 degrees. No instability. Pain of the distal medial femoral condyle and over the medial joint line.. Principal Diagnosis Same as "Discharge Diagnosis" noted below under Discharge Instructions. Discharge Exam On physical examination of the left knee, the dressing is clean and dry. He has active dorsiflexion plantarflexion of his left ankle.. Discharge Data Procedures Performed Operation Date: 05/08/22 10:25 Actual Procedures p Left Total Knee Arthroplasty(Left) - Stanley Bright DO Ordered Studies 05/08/22 05:00 US - OR guided needle placemen Routine Hospital Course (1) Status post left knee replacement: On May 08 [address] [facility] and underwent a left knee replaced without complication. He had a spinal anesthetic. Postoperatively he was started on Eliquis for DVT prophylaxis and transferred to the general orthopedic floors. His hospital course was uneventful. On postop day #1, his vital signs were stable and his pain was well controlled. He was able to participate well with physical therapy doing ambulation and range of motion exercises. He was then discharged home. He will follow with orthopedics in 2 weeks. PG Care Time/CCT Total # of Minutes Spent Total Time Spent with Patient: Total time spent is greater than 50% in coordination of care (as documented) at patient's floor/unit and/or counseling patient: Discharge Plan Discharge Items Patient Disposition: Home - Home Health Services Reason For Visit: POST OP Discharge Diagnosis: Left knee replacement Activity: Per Instructions section Non-emergency contact: Surgeon Call non-emergency contact if: your wound has increased redness and your wound has increased drainage Follow-up/Referrals: Karlo Dimas MD [Primary Care Provider] - Diet: Regular Addtl Attending Provider Instructions: Activity and Therapy Recommendations: * If you are using [facility] then therapy will be provided at your home until they feel you have accomplished all of your goals. * If you are using [facility] then Physical Therapy will be provided until they feel you are ready to start Outpatient Physical Therapy. * If you are not using home therapy then Outpatient Physical Therapy should start about 3-5 days from your day of surgery. Therapy will last about 6-10 weeks * It is important not to put a pillow under your knee when you are relaxing or sleeping. It is just as important to make sure you are getting your knee perfectly straight as it is to regain your knee bend. * You were shown a series of exercises in the hospital. Do these exercises three times each day including the exercises you were shown in physical therapy. * Get up and walk several times each day. For the first four weeks, try not to stand or walk for more than one hour at a time. If you do stand or walk for more than one hour, you will not hurt anything, but your leg will likely swell. * As you feel comfortable, you may change from the walker or crutches to a cane and then to independent walking. Medications: * Narcotic You will likely be sent home from the hospital with a prescription for the narcotic pain medication that worked best throughout your stay. * Aspirin Most patients will be required to take Aspirin 81mg twice a day for 6 weeks after surgery. This is obtained [id number] and a prescription is not necessary. * Other medications may be prescribed for specific circumstances. If you have any questions, please call the office at . * Resume previous home medications unless otherwise instructed TEDs/Elastic Stockings: The white elastic stockings help limit swelling and prevent blood clots from forming in your legs.~ The more you wear them, the more they work. Wear them for six weeks. Dressing Care: The dressing can be changed after physical therapy on postop day #1. Daily dry dressing changes for a few days, especially if the incision is still draining some. If the incision is not draining then you may leave the mele open to air. If there is a little bit of drainage or if the mele are getting stuck on your clothing then cover the incision with a dry dressing. The mele will be removed at your 2 week follow-up appointment. Showering: You may shower 5 days from the day of surgery as long as the incision is no longer draining. You may shower with the mele exposed. Let soapy water run over the mele and pat them dry. Do not scrub or soak the incision. Things To Watch For: * Drainage from the incision site that occurs more than one week after your surgery. * Increased redness at the incision site. * Fever above 102 degrees Fahrenheit. * Unusual chest pain or shortness of breath. * Call [facility] at with any of the above problems Follow-Up Visit: Follow-up with Dr. Bright's PA (Stanley Addison) 2-3 weeks after your day of surgery. He will remove your mele and answer any questions. If you have any additional questions or concerns, Dr Bright is usually in the office at the same time and will be available An appointment was probably scheduled when you signed-up for surgery in the office. If you have any questions call Office Instructions: More detailed instructions as well as Frequently Asked Questions were provided in a folder by our office when you signed-up for surgery. Please review these instructions when you get home. If you have any further questions or concerns, please feel free to call the office at [phone] Pending Studies at Discharge: No Stand-Alone Forms: My [facility] Medications and DC Order Prescriptions: New Eliquis 2.5 mg Tablet 2.5 mg PO BID Qty: 28 0RF oxycodone-acetaminophen 5-325 mg tablet 1 tab PO Q6H PRN (Reason: pain) Qty: 30 0RF Continued vit M-G-vuelld-zinc-lutein 226 mg-200 unit -5 mg-0.8 mg capsule 1 cap PO BID atenolol 50 mg tablet 50 mg PO QAM spironolactone 25 mg tablet 25 mg PO QAM glucosamine-chondroitin [Osteo Bi-Flex] 250-200 mg tablet 2 tab PO QPM multivitamin Tablet 1 tab PO QAM amoxicillin 500 mg tablet 2,000 mg PO ONCE PRN (Reason: prophylaxis) Qty: 4 3RF Rx Instructions: ONE HOUR PRIOR TO DENTAL PROCEDURE pravastatin 40 mg Tablet 40 mg PO QPM Eylea 2 mg/0.05 mL Syringe 2 mg INTRAVITREAL UD PRN (Reason: MACULAR DEGENERATION) Label Comments: EVERY 8-10 WEEKS dutasteride [Avodart] 0.5 mg capsule 0.5 mg PO QPM alfuzosin 10 mg tablet extended release 24 hr 10 mg PO QPM Rx Instructions: After a meal Discharge Orders: Discharge Order (Routine); Ordered 05/09/22 Ordered By: Stanley Bright Admission Data Admit Date/Time: 05/08/22 12:01 Attending Provider: Stanley Bright Admit Provider: Stanley Bright Primary Care Provider: Karlo Dimas
[2022-05-09] MEDS ORDERED: dexAMETHasone 4 MG TAB PO SCH (08:00)
[2022-05-09] MEDS ORDERED: ATENOLOL 50 MG TABLET PO SCH (09:00)
[2022-05-09] MEDS ORDERED: MULTIVITAMIN TAB PO SCH (09:00)
[2022-05-09] MEDS ORDERED: SPIRONOLACTONE 25 MG TAB PO SCH (09:00)
[2022-05-09] MEDS: DOCUSATE SODIUM 100 MG CAP PO SCH (10:03)
[2022-05-09] MEDS: APIXABAN 2.5 MG TAB PO SCH (10:29)
== END 2022-05-09 12:05 | disposition home health service (06) ==
LOC: ASU 07:48 → 3W 07:48